=== PATIENT | male | born 1965 | race African-American/Black ===

== ENCOUNTER 2016-03-20 22:07 | Emergency (ER) | payer OTHER ==
[~2016-03-20] VITALS: Ht 172.7 cm; Wt 96.9 kg
[2016-03-20 23:04] LABS: ADD MIUA? YES; BILIRUBIN NEGATIVE; BLOOD NEGATIVE; COLOR YELLOW ((YELLOW)); GLUCOSE (STRIP) NEGATIVE; KETONES NEGATIVE; LEUKOCYTES TRACE; NITRITE NEGATIVE; PROTEIN (STRIP) NEGATIVE; SPECIFIC GRAVITY 1.004 (1.000-1.030); UROBILINOGEN 0.2 MG/DL (0.2-1.0)
[2016-03-20 23:13] LABS: AMPHETAMINE NEGATIVE (500 ng/mL); BARBITURATES NEGATIVE (200 ng/mL); BENZODIAZEPINES NEGATIVE (150 ng/mL); COCAINE NEGATIVE (150 ng/mL); INTERNAL CONTROLS VALID? YES; METHADONE NEGATIVE (200 ng/mL); METHAMPHETAMINE NEGATIVE (500 ng/mL); OPIATES (MORPHINE) NEGATIVE (100 ng/mL); OXYCODONE NEGATIVE (100 ng/mL); PHENCYCLIDINE NEGATIVE (25 ng/mL); PROPOXYPHENE NEGATIVE (300 ng/mL); THC CANNABINOIDS NEGATIVE (50 ng/mL); TRICYCLIC ANTIDEPRESSANTS NEGATIVE (300 ng/mL)
[2016-03-20 23:19] LABS: EOSINOPHIL COUNT 0.2 K/uL (0-0.3); HEMATOCRIT 43.4 % (38.0-50.0); IMMATURE GRANULOCYTE (%) 0.1 % (0.0-0.7); IMMATURE GRANULOCYTE COUNT 0.1 K/uL; LYMPHOCYTE COUNT 2.4 K/uL (1.0-2.8); MCH 26.9 PG (29.0-34.0); MCHC 35.7 G/DL (30.0-36.0); MCV 75.3 FL (86-99); MONOCYTE (%) 12.8 % (3-12); MONOCYTE COUNT 0.9 K/uL (0-0.8); NEUTROPHIL (%) 52.4 % (45-76); NEUTROPHIL COUNT 3.9 K/uL (1.8-6.4); PLATELET COUNT 196 K/uL (156-360); RBC DIS.WIDTH-CV 14.1 % (11.8-14.6); RED BLOOD COUNT 5.76 M/uL (4.00-5.50); WHITE BLOOD COUNT 7.4 K/uL (4.1-10.2)
[2016-03-20 23:31] LABS: CHLORIDE 103 mEq/L (99-109); POTASSIUM 3.8 mEq/L (3.7-5.4); SODIUM 139 mEq/L (136-147)
[2016-03-20 23:31] LABS: BACTERIA NONE SEEN; CASTS NONE SEEN /LPF; CRYSTALS NONE SEEN; EPITHELIAL CELLS 1+; MUCUS NONE SEEN; RED BLOOD CELLS NONE SEEN /HPF (0-5); UCUL ADDED? NO; WHITE BLOOD CELLS 0-5 /HPF (0-5)
[2016-03-20 23:33] LABS: GLUCOSE 82 mg/dL (70-99)
[2016-03-20 23:34] LABS: ANION GAP 11 MEQ/L (2-14)
[2016-03-20 23:36] LABS: SERUM ETHYL ALCOHOL < 10 mg/dL
[2016-03-20 23:37] LABS: ALKALINE PHOSPHATASE 80 IU/L (3-129); GFR ESTIMATE (CALCULATED) > 59 mL/min/
[2016-03-20 23:38] LABS: UREA NITROGEN (BUN) 12 mg/dL (9-23)
[2016-03-21 15:46] VITALS: BP 108/67
[2016-03-22 10:34] LABS: TREPONEMA ANTIBODY NEGATIVE (NEGATIVE)
== END 2016-03-21 16:45 | disposition short-term general hospital (02) ==
LOC: EME 22:07
PROVIDERS: Emergency Medicine
DX: F22 Delusional disorders (principal); F29 Unspecified psychosis not due to a substance or known physiological condition; Z87.442 Personal history of urinary calculi
CPT/HCPCS: 70450; 80053; 81003; 84443; 85025; 86780; 90837; 93005; 99281; 99285; G0480

== ENCOUNTER 2016-03-25 13:32 | Emergency (ER) | payer OTHER | END 2016-03-25 13:56 | disposition left against medical advice (07) | LOC: EME 13:32 | DX: R41.0 Disorientation, unspecified (principal); Z53.21 Procedure and treatment not carried out due to patient leaving prior to being seen by health care provider ==